=== PATIENT | female | born 1955 | race Caucasian/White ===

== ENCOUNTER → 2017-04-23 | Outpatient (CLI) | payer BC ==
--- NOTE | 2017-04-23 11:15 | Diagnostic Imaging Report ---
INDICATION: Routine screening. COMPARISON: 11/11/2015 and 11/03/2014. TECHNIQUE: Screening digital mammography was performed bilaterally with a Computer Aided Detection (CAD) system. FINDINGS: Both breasts show marked parenchymal heterogeneity and increased density, limiting the sensitivity of mammography. There are benign-appearing parenchymal calcifications bilaterally. No dominant mass or malignant appearing microcalcifications are identified. The axillae are unremarkable. IMPRESSION: No mammographic features suspicious for malignancy are identified. ACR BI-RADS Category 2: Benign findings. Result letter will be mailed to the patient. Note: At least 10% of breast cancer is not imaged by mammography. Dictated by: Dictated on workstation # [id number]
== END ==
LOC: RAD 07:30
PROVIDERS: ATTEND Internal Medicine
DX: Z12.31 Encounter for screening mammogram for malignant neoplasm of breast (principal)
CPT/HCPCS: 77067

== ENCOUNTER 2022-02-15 14:30 | Outpatient (CLI) | payer MEDICARE ==
[~2022-02-15] VITALS: Ht 157.5 cm; Wt 133.4 kg
[2022-02-17] MEDS ORDERED: FURO40TA4 PO (10:37)
== END 2022-03-29 18:08 | disposition home or self-care (01) ==
LOC: PREOP 14:30
PROVIDERS: ATTEND Surgery
DX: Z01.818 Encounter for other preprocedural examination (principal)

== ENCOUNTER 2022-02-22 07:44 | Day surgery (SDC) | payer MEDICARE ==
[~2022-02-22] VITALS: Ht 157.5 cm; Wt 133.4 kg
[~2022-02-22 07:44] MED LIST: FURO40TA4 PO; LACTATED RINGERS 1,000 ML IV STA
[2022-02-22] MEDS ORDERED: HURRICAINE EXT TUBE (BENZOCAINE) XX PRN (07:45)
[2022-02-22 07:56] VITALS: BP 171/85
[2022-02-22] MEDS ORDERED: PROPOFOL INJECTION 50 ML IV ONE (08:03)
--- NOTE | 2022-02-22 08:18 | Progress Note-Pre Operative ---
Pre-Operative Progress Note Date of Available H&P: Feb 14, 2022 Date H&P Reviewed: Feb 22, 2022 Time H&P Reviewed: 08:11 History & Physical: H&P Reviewed, Patient Examed, No changes noted Pre-Operative Diagnosis: Anemia, Screening, Fecal Occult positive ANDIE BARNES DO Feb 22, 2022 08:18
[2022-02-22 08:55] VITALS: BP 105/58
--- NOTE | 2022-02-22 09:06 | Progress Note-Post Operative ---
Post-Operative Progess Note Surgeon (s)/Occupational Health Nurse Manager (s) Surgeon ANDIE BARNES DO Occupational Health Nurse Manager: Arianna Howell, MSIII Pre-Operative Diagnosis Anemia, Screening, Fecal Occult positive Post-Operative Diagnosis Gastritis Gastric Ulcer Hiatal hernia Diverticula int hemorrhoids Procedure & Operative Findings Date of Procedure 02/22/22 Procedure Performed/Findings EGD with bx Colonoscopy PROCEDURE NOTE: After informed consent was obtained, the patient was brought to the endoscopy suite, placed in bed in left lateral decubitus position. She was administered IV sedation by the SERVICE ATTENDANT who then monitored vitals the entire time, heart rate, blood pressure and pulse ox and the scope was inserted down the mouth through the esophagus into the stomach. On the way down, noted some mild esophagitis, took a picture, pushed into the stomach, pushed past the antrum into the duodenum. Duodenum looked good. Pulled back, noted gastritis and what looked like a healed ulcer. Did a biopsy of the antrum and then did a biopsy of what I thought was the ulcer. Next, retroflexed the scope and saw a hiatal hernia, took a picture of it and then pulled the scope into the GE junction, took another picture of the hiatal hernia and then did a biopsy of the GE junction. Pushed the scope back into the stomach, suctioned all the air out of the stomach. At this point pulled the scope up the esophagus and out the mouth. Switched camera, switched gloves, went down below and started the colonoscopy. Pushed all the way to about 150 cm and pushed into the cecum, took a picture of appendiceal orifice and noted the ileocecal valve. Then slowly withdrew the scope insufflating to look circumferentially at the garcia starting in the cecum, up the ascending colon to the hepatic flexure, then down the transverse colon, splenic flexure, into the descending colon down in the sigmoid and then i nto the rectal vault and retroflexed the scope. Took picture of the internal hemorrhoids. She had a few diverticula and took a picture of them during the procedure. The patient tolerated the procedure and she recovered in the endoscopy suite. Recommended for repeat colonoscopy in 10 years Anesthesia Type IV sedation by SERVICE ATTENDANT Estimated Blood Loss Estimated blood loss (mL): scant Specimens/Packing Specimens Removed antral bx gastric ulcer bx GE jxn bx ANDIE BARNES DO Feb 22, 2022 09:05
--- NOTE | 2022-02-22 09:07 | Endoscopy Discharge Instruct ---
Endo Procedure/Findings Findings 1.: Gastritis 2.: Gastric Ulcer 3.: Hiatal Hernia 4.: Diverticulosis, Internal Hemorrhoids Discharge Instructions - Activity: You might feel a little sleepy until tomorrow. This is due to the medicine you received to relax you. Until tomorrow, you should: NOT drive a car, operate machinery or power tools. NOT drink any alcoholic beverages. NOT make any important decisions or sign importortant papers. Do not return to work until tomorrow, unless otherwise instructed. Resume previous activities tomorrow. Diet: Start by taking liquids. If you tolerate liquids, advance to solid food. 1.: EGD in 1 year 2.: Colonscopy in 10 years Notify Physician - If you experience excessive bleeding, unusual abdominal pain, fever, or chest pain, contact your doctor immediately. ANIDE BARNES DO Feb 22, 2022 09:07
[2022-02-22 09:37] VITALS: BP 105/58
--- NOTE | 2022-02-22 13:01 | Anesthesia-General Post-Op ---
MAC Patient Condition Mental Status/LOC: Same as Preop Cardiovascular: Satisfactory Nausea/Vomiting: Absent Respiratory: Satisfactory Pain: Controlled Complications: Absent Post Op Complications Complications None Follow Up Care/Instructions Patient Instructions None needed. Anesthesiology Discharge Order Discharge Order Patient is doing well, no complaints, stable vital signs, no apparent adverse anesthesia problems. No complications reported per nursing. ALECIA CEDEÑO CRNA Feb 22, 2022 13:01
== END 2022-02-22 09:50 | disposition home or self-care (01) ==
LOC: ENDO 07:44
PROVIDERS: ATTEND Surgery
DX: K57.30 Diverticulosis of large intestine without perforation or abscess without bleeding (principal); K29.50 Unspecified chronic gastritis without bleeding; K44.9 Diaphragmatic hernia without obstruction or gangrene; K25.9 Gastric ulcer, unspecified as acute or chronic, without hemorrhage or perforation; K64.8 Other hemorrhoids; D50.9 Iron deficiency anemia, unspecified; E66.01 Morbid (severe) obesity due to excess calories; Z68.43 Body mass index [BMI] 50.0-59.9, adult